=== PATIENT | female | born 2000 | race Caucasian/White ===

== ENCOUNTER 2019-08-08 14:50 | Outpatient (CLI) | payer MEDICAID, SELFPAY ==
--- NOTE | 2019-08-08 | US_ITS ---
WS: [id number] OBSTETRICAL ULTRASOUND COMPLETE HISTORY: CARE OF FIRST COMPARISON: None available. Single intrauterine gestation in transverse presentation. head on maternal RIGHT. Cervix is Closed and normal length. Cervical length is 4.1 cm. Normal amount of amniotic fluid surrounds the fetus. Placenta: Anterior, no previa or abruption. Placenta grade 1 Heart: 145 BPM. Cannot confirm four-chamber heart. Anatomy: Normal intracranial structures. Spine is posterior throughout the examination. Spine is poor ly visualized in its entirety. stomach is normal. Bladder is not distended. Kidneys are negativ e. Abdominal wall, three-vessel cord and cord insertion site are normal. 4 extremities are present. profile: Not visualized. Gender: Female. measurements: BPD = 4.6 cm = 19w5d HC = 16.9 cm = 19w4d AC = 15.5 cm = 20w4d FL = 3.2 cm = 19w6d EFW: 337 g., Measurements are internally concordant. AGA by ultrasound: 20 weeks 0 day KAI by ultrasound: 12/26/2019 US/US OB >= 14 weeks fetus [id number] IMPRESSION: 1. Single intrauterine gestation of 20 weeks 0 day with an EDC of 12/26/2019. 2. Technically difficult evaluation of the anatomy. Recommend 2-3 week f ollow-up to reevaluate the spine, heart, urinary bladder and profile. The remaining anatomy is negative.
== END 2019-08-08 14:51 | disposition home or self-care (01) ==
PROVIDERS: Family Provider Nurse Practitioner Family; PCP Nurse Practitioner Family; Visit Provider Family Medicine
DX: Z76.89 Persons encountering health services in other specified circumstances (principal)

== ENCOUNTER 2019-09-03 16:19 | Outpatient (CLI) | payer MEDICAID, SELFPAY ==
--- NOTE | 2019-09-03 | US_ITS ---
WS: [id number] LIMITED OBSTETRICAL ULTRASOUND HISTORY: MULTIGRAVIDA IN 2ND TRIMESTER, follow-up examination. Re-evaluation of spine, heart, u rinary bladder and profile. COMPARISON: 08/08/2019 Presentation: Breech. Cervix: Closed and normal length. Placenta: Anterior, no previa or abruption. Grade: 1 HEART: FHR of 148 BPM. Follow up imaging of the urinary bladder, spine, four-chamber heart and profile is normal. No abnorma lities identified. measurements: BPD = 5.7 cm = 23w3d HC = 21.7 cm = 23w5d AC = 19.0 cm = 23w5d FL = 4.2 cm = 23w5d Visually normal amniotic fluid. EFW: 620 g; 43.8 %. AGA by ultrasound: 23 weeks 5 days KAI by ultrasound: 12/26/2019 US[place] [id number] IMPRESSION: 1. Single intrauterine gestation of 23 weeks 5 days with an EDC of 12/26/2019. Appropriate growth since the prior ultrasound. 2. Follow-up imaging of the urinary bladder, spine, heart and profile is [place] l.
== END 2019-09-03 16:20 | disposition home or self-care (01) ==
LOC: RADOUTREAD 09-04 09:29
PROVIDERS: Family Provider Nurse Practitioner Family; PCP Nurse Practitioner Family; Visit Provider Family Medicine
DX: Z76.89 Persons encountering health services in other specified circumstances (principal)

== ENCOUNTER 2019-12-27 01:26 | Inpatient (IN) | payer MEDICAID, SELFPAY ==
[2019-12-27] VITALS (18 sets, daily range): BP systolic 100–138; BP diastolic 56–73; PULSE 67–107; RESP 17–18; TEMP 36.6–36.9; O2SAT 99; BMI 32.8
[2019-12-27] MEDS: dextrose 5%-lactated ringers 1,000 ML 125 ML IV (01:27)
[2019-12-27 01:54] LABS: Basophils % 0.1 %; Eosinophils % 0.2 %; Hematocrit 36.2 % (37.0-47.0); Hemoglobin 11.2 g/dL (11.5-15.3); Lymphocytes # 1.4 10^3/uL (1.5-6.5); Lymphocytes % 10.5 %; Mean Corpuscular HGB Conc 30.9 g/dL (30.0-36.0); Mean Corpuscular Hemoglobin 25.4 pg (28.0-34.0); Mean Corpuscular Volume 82.1 fL (81-99); Mean Platelet Volume 10.8 fL (7.4-10.4); Monocytes # 0.6 10^3/uL (0.2-0.9); Monocytes % 4.4 %; Neutrophils # 11.2 10^3/uL (1.8-8.0); Neutrophils % 84.5 %; Nucleated Red Blood Cells % 0 %; Platelet Count 289 10^3/cmm (130-400); Red Blood Count 4.41 10^6/uL (4.1-5.3); Red Cell Distribution Width 13.8 % (12.1-15.1); White Blood Count 13.2 10^3/uL (4.5-13.0)
[2019-12-27] MEDS: oxytocin 30 UNIT/500 ML BAG 600 UNIT IV (02:12)
--- NOTE | 2019-12-27 02:37 | PM.DELIVERY ---
Delivery Note: Date of delivery: December 27, 2019 Pre-delivery diagnoses: 19-year-old 2 para 1-0-0-1 at 40 weeks estimated gestational age presenting in active labor Post-delivery diagnoses: Same Procedure: Spontaneous vaginal delivery Op report anesthesia: None Delivering Physician: Yung Sanchez Estimated blood loss (mL): 200 Pre-Delivery Course: The patient is an otherwise healthy 40-week female infant who arrived in active labor. She was having consistent contractions. Her membranes were still intact. She was checked and found to be 9 cm dilated. An amniotomy was performed, and she quickly progressed to complete without difficulty. Her has otherwise been unremarkable. She has had no complications. She is GBS negative. Her glucose screen was negative. Her blood type is a positive. Her other labs have been within normal limits. Delivery: DELIVERY: The patient progressed to complete without difficulty. She delivered a female with a weight of 7 pounds 6 ounces with Apgars of 8, 9. The baby was delivered from the ANTOINE position. The baby's mouth and nose were suctioned shortly after delivery. . The cord was then clamped and cut after 1 minute post delivery. There was no nuchal cord. There was no meconium. The placenta and 3 vessel cord were delivered intact shortly thereafter. The perineum and vaginal vault were carefully examined. No lacerations were noted. Both the mother and the baby were in stable condition. Post-Delivery Status: Good Coding Level of Care Code Acute Pharmacy Service Associate for Ivana Reich
[2019-12-27] MEDS: docusate sodium 100 mg Capsule PO ×2 (09:53→18:39)
[2019-12-27] MEDS: prenatal vitamin Capsule 1 CAP PO (09:53)
[2019-12-27 14:47] LABS: Hemoglobin 9.8 g/dL (11.5-15.3); Mean Corpuscular HGB Conc 30.6 g/dL (30.0-36.0); Mean Corpuscular Hemoglobin 25.3 pg (28.0-34.0); Mean Corpuscular Volume 82.7 fL (81-99); Mean Platelet Volume 10.9 fL (7.4-10.4); Platelet Count 258 10^3/cmm (130-400); Red Blood Count 3.87 10^6/uL (4.1-5.3); Red Cell Distribution Width 13.8 % (12.1-15.1); White Blood Count 10.8 10^3/uL (4.5-13.0)
[2019-12-27] MEDS: lanolin oint 7 gm 1 APPLIC TOPICAL (15:54)
[2019-12-28 03:00] VITALS: BP 102/61; PULSE 60; RESP 18; TEMP 36.6
[2019-12-28] MEDS: prenatal vitamin Capsule 1 CAP PO (09:11)
[2019-12-28] MEDS: docusate sodium 100 mg Capsule PO (09:11)
--- NOTE | 2019-12-28 09:43 | PM.OBGYDC ---
Discharge Providers VEHICLE REFINISHER Date of Admission: 12/27/19 01:26 Date of Discharge: 12/28/19 Attending Provider at Admission: Yung Sanchez MD Attending Provider at Discharge: Yung Sanchez MD Primary Care Provider: SLOAN Ledbetter Diagnoses at Discharge Discharge Diagnosis (1) 40 weeks gestation of : Status: Acute (2) Spontaneous vaginal delivery: Status: Acute Reason for Visit Reason for Visit: contractions Hospital Course Hospital Course: The patient presented to the hospital in active labor. She quickly progressed to complete. An amniotomy was performed. She had an unremarkable spontaneous vaginal delivery. Her course was also unremarkable. Her bleeding was under control. Her pain was well controlled. There were no concerns. Information Peripartum Data: Delivery Method: Vaginal Physical Exam Narrative: EXAM NARRATIVE: The patient is alert. She appears comfortable. Her heart has a regular rate and rhythm with no murmurs appreciated. Lungs are clear to auscultation bilaterally. Her fundus is firm and below the umbilicus. Discharge Data Data Completed and Pending: Labs from last 24 hours 12/27/19 14:32 WBC 10.8 RBC 3.87 L Hgb 9.8 L Hct 32.0 L MCV 82.7 MCH 25.3 L MCHC 30.6 RDW 13.8 Plt Count 258 MPV 10.9 H Vitals: Last Vital Signs Temp 97.9 F 12/28/19 03:00 Pulse 60 12/28/19 03:00 Resp 18 12/28/19 03:00 BP 102/61 12/28/19 03:00 Pulse Ox 99 12/27/19 07:30 Discharge Plan Discharge Patient Disposition: Home, Self-Care Condition: Stable Prescriptions: New ibuprofen 800 mg Tablet 800 mg PO TID Qty: 45 RF: 0 -U 106.5-1 mg Capsule 1 cap PO DAILY Qty: 90 RF: 0 Discharge Orders: Discharge Order (Routine); Ordered 12/28/19 Ordered By: Yung Sanchez Referrals: Yung Sanchez MD [Physician] - 6 Weeks Discharge Diet: Usual diet Discharge Activity: Limit activity as instructed Discharge Attestations VEHICLE REFINISHER Time Spent in Discharge Care*: less than 30 min Coding Level of Care Code Acute Engineering Faculty for Chg Fwd Diagnoses 40 weeks gestation of Z3A.40 Spontaneous vaginal delivery O80
[2019-12-28 10:15] VITALS: BP 99/64; PULSE 107; RESP 16; TEMP 36.5; O2SAT 99
== END 2019-12-28 11:30 | disposition home or self-care (01) | DRG 807 ==
LOC: OPOB 01:27 → OBGYN 01:27
PROVIDERS: Admitting Provider Family Medicine; Family Provider Nurse Practitioner Family; PCP Nurse Practitioner Family; Visit Provider Family Medicine
DX: O80 Encounter for full-term uncomplicated delivery (principal); Z37.0 Single live birth; Z3A.40 40 weeks gestation of pregnancy
CPT/HCPCS: 12345; 36415; 59409; 85025; 85027; 98960; 99211

== ENCOUNTER → 2020-10-07 10:04 | Outpatient (BNVA) | payer BC, MEDICAID, SELFPAY | PROVIDERS: Family Provider Nurse Practitioner Family; PCP Nurse Practitioner Family; Visit Provider Nurse Practitioner | DX: B37.9 Candidiasis, unspecified (principal); N76.0 Acute vaginitis | CPT/HCPCS: 80048; 85025; 87070; 87205 ==

== ENCOUNTER → 2021-02-17 09:54 | Outpatient (BNVA) | payer BC, MEDICAID, SELFPAY | PROVIDERS: Family Provider Nurse Practitioner Family; PCP Nurse Practitioner Family; Visit Provider Nurse Practitioner Family | DX: R59.1 Generalized enlarged lymph nodes (principal) | CPT/HCPCS: 80053; 85025 ==

== ENCOUNTER → 2021-08-25 10:19 | Outpatient (BNVA) | payer BC, MEDICAID, SELFPAY | PROVIDERS: Family Provider Nurse Practitioner Family; PCP Nurse Practitioner Family; Visit Provider Nurse Practitioner Family | DX: R30.0 Dysuria (principal); Z30.09 Encounter for other general counseling and advice on contraception; Z30.41 Encounter for surveillance of contraceptive pills; N39.0 Urinary tract infection, site not specified; Z20.828 Contact with and (suspected) exposure to other viral communicable diseases | CPT/HCPCS: 81000; 81025; 87086 ==

== ENCOUNTER → 2021-09-27 11:26 | Outpatient (BNVA) | payer BC, MEDICAID, SELFPAY | PROVIDERS: Family Provider Nurse Practitioner Family; PCP Nurse Practitioner Family; Visit Provider Nurse Practitioner Family | DX: R39.9 Unspecified symptoms and signs involving the genitourinary system (principal); N76.0 Acute vaginitis; B96.89 Other specified bacterial agents as the cause of diseases classified elsewhere; Z20.828 Contact with and (suspected) exposure to other viral communicable diseases | CPT/HCPCS: 81000; 87491; 87530; 87591; 87661 ==

== ENCOUNTER → 2022-03-17 11:13 | Outpatient (BNVA) | payer BC, MEDICAID, SELFPAY | PROVIDERS: Family Provider Nurse Practitioner Family; PCP Nurse Practitioner Family; Visit Provider Nurse Practitioner | DX: R53.83 Other fatigue (principal); Z76.89 Persons encountering health services in other specified circumstances; E55.9 Vitamin D deficiency, unspecified; Z12.4 Encounter for screening for malignant neoplasm of cervix | CPT/HCPCS: 80053; 82306; 82607; 84443; 85025; 87491; 87530; 87591; 88175 ==

== ENCOUNTER → 2022-06-09 13:36 | Outpatient (BNVA) | payer BC, MEDICAID, SELFPAY | PROVIDERS: Family Provider Nurse Practitioner Family; PCP Nurse Practitioner Family; Visit Provider Nurse Practitioner | DX: Z12.4 Encounter for screening for malignant neoplasm of cervix (principal); E03.9 Hypothyroidism, unspecified; E55.9 Vitamin D deficiency, unspecified | CPT/HCPCS: 80053; 82306; 84439; 84443; 84481; 86800; 88175 ==